=== PATIENT | female | born 1995 | race Caucasian/White ===

== ENCOUNTER 2022-03-14 07:34 | Emergency (ER) | payer BC ==
[2022-03-14 10:26] VITALS: BP 127/83; PULSE 98
== END 2022-03-14 08:35 | disposition home or self-care (01) ==
LOC: FB.ED 07:34
DX: O20.9 Hemorrhage in early pregnancy, unspecified (principal); Z3A.14 14 weeks gestation of pregnancy
CPT/HCPCS: 36415; 84702; 85025; 99281; 99284